=== PATIENT | female | born 1980 | race Caucasian/White ===

== ENCOUNTER 2016-11-01 06:57 | Day surgery (SDC) | payer MEDICAID ==
[~2016-11-01 06:57] MED LIST: Lactated Ringers 1,000 ML IV SCH; Lidocaine 1%/Sod Bicarbonate in NS 8.4% 1 ML Syringe IV PRN; Sodium Chloride 0.9% 10 ML Syringe FLUSH PRN
[2016-11-01] MEDS ORDERED: Bupivacaine 0.5% 30 ML SDV ONE (07:05)
[2016-11-01] MEDS ORDERED: Ketorolac 30 MG/ML SDV ONE (07:26)
[2016-11-01] MEDS ORDERED: ceFAZolin 1 GM Vial ONE (07:26)
[2016-11-01] MEDS ORDERED: Lactated Ringers 1,000 ML ONE (07:26)
[2016-11-01] MEDS ORDERED: HYDROmorphone 1 MG/ML Syringe ONE (07:26)
[2016-11-01] MEDS ORDERED: Dexamethasone 4 MG/ML 5 ML MDV ONE (07:26)
[2016-11-01] MEDS ORDERED: Rocuronium 50 MG/5 ML Vial ONE (07:26)
[2016-11-01] MEDS ORDERED: Ondansetron 4 MG/2 ML SDV ONE (07:26)
[2016-11-01] MEDS ORDERED: Lidocaine 1% 6 ML ONE (07:26)
[2016-11-01] MEDS ORDERED: Propofol 200 MG/20 ML SDV ONE (07:27)
[2016-11-01] MEDS ORDERED: fentaNYL 250 MCG/5 ML SDV ONE (07:27)
[2016-11-01] MEDS ORDERED: Midazolam 1 MG/ML 2 ML SDV ONE (07:27)
[2016-11-01] MEDS ORDERED: Scopolamine 1.5 MG Transdermal Patch TRDERM PRN (07:30)
--- NOTE | 2016-11-01 07:36 | PCM.PREANE ---
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 Respiratory: Reports: no symptoms (smokes cigarettes1/2 pack/day times past 20 years.) Cardiovascular: Reports: dyspnea on exertion, palpitations (with anxiety disorder.) GI: Reports: no symptoms Other: Reports: easy bruising, depression, anxiety - PHYSICAL ASSESSMENT HR: 93 O2 Sat by Pulse Oximetry: 99 RR: 18 BP: 117/84 Temp: 37.1 C Height: 1.57 m Weight: 87.09 kg NPO Status Date: 11/01/16 NPO Status Time: 00:01 ASA Class: 2 Mental Status: alert & oriented x3 Airway Class: Mallampati = 2 Dentition: Reports: dentures (upper and lower) Thyro-Mental Finger Breadths: 3 Mouth Opening Finger Breadths: 3 ROM/Head Extension: full Respiratory Status: lungs clear to auscultation bilaterally Cardiovascular Status: regular rate & rhythm, normal S1, S2, no murmur, blood pressure WNL - LAB Values: Reviewed and noted. - IMAGING/EKG Impressions: EKG: sinus rhythm, right atrial enlargement, poor r wave progression. CXR: negative - ALLERGIES Allergies/Adverse Reactions: Allergies Allergy/AdvReac Type Severity Reaction Status Date / Time No Known Drug Allergies Allergy Unknown unknown Verified 10/31/16 12:24 - ANESTHESIA PLAN Preop Beta Gabby: No Anesthesia Type Planned: general anesthesia - ACKNOWLEDGEMENTS Pt an appropriate candidate for the planned anesthesia: Yes Alternatives and risks of anesthesia discussed w pt/guardian: Yes Pt/Guardian understands and agree with anesthesia plan: Yes PreAnesthesia Questionnaire HEENT History: Reports: Other (see below) Other HEENT History: wears glasses, has dentures Cardiovascular History: Reports: None Respiratory History: Reports: None 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 History: Reports: Endometriosis, Other OB/BYN History: left ovary removed, ovarian cyst, pelvic pain, dysnmenorrhea, chylmdia Musculoskeletal History: Reports: None Neurological History: Reports: Headaches, chronic Psychiatric History: Reports: Anxiety, Bipolar, Depression Endocrine/Metabolic History: Reports: None Hematologic History: Reports: None Immunologic History: Reports: None Oncologic (Cancer) History: Reports: None Dermatologic History: Reports: None - Past Surgical History Head Surgeries/Procedures: Reports: None HEENT Surgical History: Reports: Tonsillectomy Cardiovascular Surgical History: Reports: None GI Surgical History: Reports: Cholecystectomy Female Surgical History: Reports: Hysterectomy, Oophorectomy, Tubal ligation - SUBSTANCE USE Smoking Status *Q: Current Every Day Smoker Tobacco Use Within Last Twelve Months: Cigarettes Second Hand Smoke Exposure: Yes Recreational Drug Use History: No - HOME MEDS Home Medications: Home Meds ClonazePAM [KlonoPIN] 0.5 mg PO TID PRN 01/23/16 [History] QUEtiapine [SEROquel] 25 mg PO QID PRN 01/23/16 [History] Cyclobenzaprine [Flexeril] 10 mg PO TID PRN 10/31/16 [History] Escitalopram [Lexapro] 1 tab PO DAILY 10/31/16 [History] buPROPion HCl [Wellbutrin Xl] 1 tab PO DAILY 10/31/16 [History] - CURRENT (IN HOUSE) MEDS Current Meds: Current Medications Lactated Ringer's (Ringers, Lactated) 1,000 mls @ 125 mls/hr IV ASDIRECTED NICO Stop: 11/01/16 23:00 Lidocaine/Sodium Bicarbonate (Buffered Lidocaine 1% In Ns 8.4%) 0.25 ml IV ONETIME PRN PRN Reason: Prior to IV Start Stop: 11/01/16 18:00 Sodium Chloride (Saline Flush) 10 ml FLUSH ASDIRECTED PRN PRN Reason: Keep Vein Open Stop: 11/01/16 18:00 Discontinued Medications Bupivacaine HCl (Marcaine 0.5%) Confirm Administered Dose 30 ml .ROUTE .STK-MED ONE Stop: 11/01/16 07:06 Cefazolin Sodium (Ancef) Confirm Administered Dose 2 gm .ROUTE .STK-MED ONE Stop: 11/01/16 07:27 Dexamethasone (Dexamethasone) Confirm Administered Dose 20 mg .ROUTE .STK-MED ONE Stop: 11/01/16 07:27 Fentanyl (Sublimaze) Confirm Administered Dose 250 mcg .ROUTE .STK-MED ONE Stop: 11/01/16 07:28 Hydromorphone HCl (Dilaudid) Confirm Administered Dose 1 mg .ROUTE .STK-MED ONE Stop: 11/01/16 07:27 Lidocaine HCl (Xylocaine-Mpf 1%) Confirm Administered Dose 6 mls @ as directed .ROUTE .STK-MED ONE Stop: 11/01/16 07:27 Lactated Ringer's (Ringers, Lactated) Confirm Administered Dose 1,000 mls @ as directed .ROUTE .STK-MED ONE Stop: 11/01/16 07:27 Ketorolac Tromethamine (Toradol) Confirm Administered Dose 30 mg .ROUTE .STK- MED ONE Stop: 11/01/16 07:27 Midazolam HCl (Versed 1 Mg/Ml) Confirm Administered Dose 2 mg .ROUTE .STK-MED ONE Stop: 11/01/16 07:28 Ondansetron HCl (Zofran) Confirm Administered Dose 4 mg .ROUTE .STK-MED ONE Stop: 11/01/16 07:27 Propofol (Diprivan 20 Ml) Confirm Administered Dose 200 mg .ROUTE .STK-MED ONE Stop: 11/01/16 07:28 Rocuronium [place] (Zemuron) Confirm Administered Dose 50 mg .ROUTE .STK-MED ONE Stop: 11/01/16 07:27
[2016-11-01] MEDS ORDERED: Ondansetron 4 MG/2 ML SDV IVPUSH PRN (08:14)
[2016-11-01] MEDS ORDERED: HYDROmorphone 0.5 MG/0.5 ML Syringe IVPUSH PRN (08:14)
[2016-11-01] MEDS ORDERED: fentaNYL 100 MCG/2 ML SDV IVPUSH PRN (08:14)
[2016-11-01] MEDS ORDERED: Albuterol 0.083% 2.5 MG/3 ML Neb Soln NEB PRN (08:14)
[2016-11-01] MEDS ORDERED: Midazolam 1 MG/ML 2 ML SDV IVPUSH PRN (08:14)
[2016-11-01] MEDS ORDERED: diphenhydrAMINE 50 MG/ML SDV ONE (08:20)
[2016-11-01] MEDS ORDERED: Neostigmine Methylsulfate 1 MG/ML 5 ML Syringe ONE (08:50)
--- NOTE | 2016-11-01 09:13 | PCM.POSTAN ---
POST ANESTHESIA ASSESSMENT - MENTAL STATUS Mental Status: alert - VITAL SIGNS Pulse Rate: 86 SaO2: 99 Resp Rate: 17 Blood Pressure: 146/84 Temperature: 36.6 C - RESPIRATORY Respiratory Status: respiratory rate WNL, airway patent, O2 saturation stable, supplemental oxygen - CARDIOVASCULAR CV Status: pulse rate WNL, blood pressure stable - GASTROINTESTINAL GI Status: no symptoms - POST OP HYDRATION Hydration Status: adequate & stable
--- NOTE | 2016-11-01 09:14 | PCM.OPNOTE ---
- General Post-Op/Procedure Note Date of Surgery/Procedure: 11/01/16 Operative Procedure(s): Diagnostic laparoscopy, with lysis of adhesions, and removal of the right ovary Pre Op Diagnosis: Lower quadrant pain, history of endometriosis, pelvic pain Post-Op Diagnosis: Right lower quadrant pain, no endometriosis seen, pelvic pain , adhesions of omentum to vaginal cuff, and pelvic area Anesthesia Technique: General ET tube Primary Surgeon: Delio Lui Anesthesia Provider: Marielos Mc Fluid Replacement, Intraop: 1,500 Output, Urine Amount: 100 EBL in mLs: 5 Drain/Tube Comments:: Non- Complications: None Condition: Good Free Text/Narrative:: Patient was transported to operating room #2, and placed under general anesthesia with endotracheal intubation in the low dorsal lithotomy position. Prepared and draped in sterile fashion. SCDs in place and functioning. Prior surgery. Ancef 2 g given intravenously, prior surgery. Timeout performed. Examination under anesthesia revealed right ovary palpable. No other adnexal masses or pelvic masses palpated. Sponge stick placed in the vagina and removed at the end of the procedure to allow manipulation of the vaginal cuff, if needed. The umbilical area and suprapubic area injected with 2 mL of 0.25% lidocaine 5 mm incision made in the umbilical area 5 mm layer 10 mm incision in the suprapubic area to allow removal of the ovary. The pneumoperitoneum was obtained. Prompt visualization. Pelvic organs was accomplished. There were adhesions of the omentum to the vaginal cuff, and the right ovary was stuck down behind The adhesions. The area of the gallbladder was evaluated, with laparoscope. Menses, gallbladder been removed previously appeared normal.). Appendix was normal retrocecal, and not removed. A third port was placed left quadrant, and utilizing Enseal. The right ovary was grasped, elevated, and cross clamped, Enseal activated, and incised, the right ovary was removed intact. Into the pelvis, posterior cul-de-sac lesions of the omentum were then lysed from the vaginal cuff. Hemostasis was obtained without difficulty and estimated blood loss 5 mL or less . 12 mm port inserted in the suprapubic incision area after moving. The 5 mm port, and extended, an incision in the right ovary removed with the bag being placed under replaced into the Endobag and removed through the incision. Reinspection. The pelvic area showed no bleeding. The 12 mm port 5 mm ports on the left side, and umbilicus removed after reducing the pneumoperitoneum. The anterior fascia was suture-ligated with 0 Vicryl. At the suprapubic area and no bleeding observed through the scope after suturing. Same. The left quadrant 5 mm port removed, and no bleeding seen. Sponge, needle, pack, and splint sharp count correct, x2, and the skin incisions closed with 3-0 Monocryl and Dermabond applied. Sponge stick removed from the vagina as noted above. To remove. Patient transported post anesthesia care unit in satisfactory condition. No blood transfusions I talked with the patient's and all questions answered is voice satisfaction. One set of pictures taken with 6 image image 001, shows liver with previous, cholecystectomy image, 002, shows retrocecal appendix image, 003, shows the right adnexa. After removal, right ovary, which is seen on the left side, the picture to into the cul-de-sac. Images Euler for, shows the pelvic peritoneum image, 005, again, pelvic peritoneum, and no bleeding, and image, 006, shows the left quadrant 5 mm port after removal with no bleeding. Will prescribe Percocet, one or 2 every 6-8 hours, dispense 25, taken as needed , and also prescription for Motrin 600 mg by mouth q. 6 hours as needed for pain , dispensed 50 and Zofran and ODT, 4 mg, dispense 20, use, one every 6 hours, sublingual, if needed. After removal of the scopolamine, with instructions for removal watch hand was removed. Patch placing Kleenex discard, and wash hands twice, do not rubberized, poorly 6 patch, which we removed in 2 days
[2016-11-01 10:13] VITALS: BP 123/73
[2016-11-01] MEDS ORDERED: Acetaminophen/oxyCODONE 325-5 MG Tab PO SCH (10:34)
--- NOTE | 2016-11-01 10:34 | PCM48HPAN ---
Post Anesthesia Note - EVALUATION WITHIN 48HRS OF ANESTHETIC Vital Signs in Normal Range: Yes Patient Participated in Evaluation: Yes Respiratory Function Stable: Yes Airway Patent: Yes Cardiovascular Function Stable: Yes Hydration Status Stable: Yes Pain Control Satisfactory: Yes Nausea and Vomiting Control Satisfactory: Yes Mental Status Recovered: Yes
== END 2016-11-01 11:01 | disposition home or self-care (01) ==
LOC: JD.SDS 06:57
PROVIDERS: ATTEND Obstetrics & Gynecology
DX: N83.01 Follicular cyst of right ovary (principal); F41.9 Anxiety disorder, unspecified; F32.9 Major depressive disorder, single episode, unspecified; Z79.899 Other long term (current) drug therapy
CPT/HCPCS: 58940; 88305; A9270; J0690; J1100; J1170; J1200; J2250; J2405; J2710; J3010; J7050; J7120; 00840; J1885; J2704

== ENCOUNTER 2017-09-04 15:19 | Emergency (ER) | payer MEDICAID ==
[2017-09-04 15:49] VITALS: BP 140/92
--- NOTE | 2017-09-04 16:41 | EDM.PDOC ---
ED HPI GENERAL MEDICAL PROBLEM - General Chief Complaint: General Stated Complaint: TOOK A FALL; NOW HAS PAIN IN HEAD,BACK, AND HIP Time Seen by Provider: 09/04/17 15:47 Source of Information: Reports: Patient History Limitations: Reports: No Limitations - History of Present Illness INITIAL COMMENTS - FREE TEXT/NARRATIVE: The patient slipped getting in her car and landed on her left hip about a week ago. Today she cleaned her floor and slipped and fell and landed on her left side. She did hit her head but she has no LOC. She has no neck pain. She has no numbness or weakness. She has pain to her left proximal and distal humerus. She has pain to her left proximal femur and distal femur. She also has some left lateral chest pain. Onset: Sudden Duration: Minutes: Quality: Reports: Sharp Severity: Moderate Improves with: Reports: Immobilization Worsens with: Reports: Movement Context: Reports: Trauma (fell) Associated Symptoms: Reports: Chest Pain, Headaches. 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, NSAIDS left side of head, shoulder, legs, ankle Pain Score (Numeric/FACES): 7 - Related Data Allergies Allergy/AdvReac Type Severity Reaction Status Date / Time diclofenac Allergy Rash Verified 09/04/17 15:49 Home Meds: Home Meds ClonazePAM [KlonoPIN] 0.5 mg PO TID PRN 01/23/16 [History] QUEtiapine [SEROquel] 100 mg PO BEDTIME 01/23/16 [History] buPROPion HCl [Wellbutrin Xl] 1 tab PO DAILY 10/31/16 [History] Desvenlafaxine [Pristiq] 1 tab PO DAILY 09/04/17 [History] Estradiol [Vivelle-Dot] 1 each TD ASDIRECTED 09/04/17 [History] Hydrocodone/Acetaminophen [Hydrocodon-Acetaminophen 5-325] 1 - 2 each PO Q6HR PRN #20 tablet 09/04/17 [Rx] Zolpidem Tartrate [Ambien] 10 mg PO ASDIRECTED PRN 09/04/17 [History] Past Medical History HEENT History: Reports: Other (See Below) Other HEENT History: wears glasses, has dentures Cardiovascular History: Reports: None Respiratory History: Reports: None Genitourinary History: Reports: Other (See Below) Other Genitourinary History: bladder droop 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: Endometriosis, Other OB/BYN History: left ovary removed, ovarian cyst, pelvic pain, dysnmenorrhea, chylmdia Musculoskeletal History: Reports: None Neurological History: Reports: Headaches, Chronic Psychiatric History: Reports: Anxiety, Bipolar, Depression Endocrine/Metabolic History: Reports: None Hematologic History: Reports: None Immunologic History: Reports: None Oncologic (Cancer) History: Reports: None Dermatologic History: Reports: None - Past Surgical History Head Surgeries/Procedures: Reports: None Cardiovascular Surgical History: Reports: None GI Surgical History: Reports: Cholecystectomy Female Surgical History: Reports: Hysterectomy, Oophorectomy, Tubal Ligation Social & Family History - Family History Family Medical History: Noncontributory - Tobacco Use Smoking Status *Q: Current Every Day Smoker Years of Tobacco use: 20 Packs/Tins Daily: 0.5 Second Hand Smoke Exposure: Yes - Caffeine Use Caffeine Use: Reports: Soda, Tea - Recreational Drug Use Recreational Drug Use: No - Living Situation & Occupation Living situation: Reports: with Significant Other, with Family Occupation: Unemployed ED ROS GENERAL - Review of Systems Review Of Systems: See Below Constitutional: Reports: No Symptoms HEENT: Reports: No Symptoms Respiratory: Reports: No Symptoms Cardiovascular: Reports: No Symptoms Endocrine: Reports: No Symptoms GI/Abdominal: Reports: No Symptoms : Reports: No Symptoms Musculoskeletal: Reports: Other (Left arm and leg pain) Neurological: Reports: Headache ED EXAM, GENERAL - Physical Exam Exam: See Below Exam Limited By: No Limitations General Appearance: Alert, No Apparent Distress Ears: Normal External Exam Nose: Normal Inspection Head: Atraumatic, Normocephalic Neck: Normal Inspection Respiratory/Chest: No Respiratory Distress, Lungs Clear, Normal Breath Sounds, Other (Pain upon palpation to the left lateral rib cage) Cardiovascular: Regular Rate, Rhythm, No Edema, No Murmur GI/Abdominal: Soft, Non-Tender, No Organomegaly, No Mass Back Exam: Normal Inspection Extremities: Other (Pain upon palpation to the left hip and distal femur. Good sensation and pulses distally. Pain upon palpation to the left proximal humerus and distal humerus.) Course - Vital Signs Last Recorded V/S: Last Vital Signs Temp 96.4 F 09/04/17 15:45 Pulse 86 09/04/17 15:45 Resp 18 09/04/17 15:45 BP 140/92 H 09/04/17 15:45 Pulse Ox 99 09/04/17 15:45 - Orders/Labs/Meds Orders: Active Orders 24 hr Category Date Time Status Femur Min 2V Lt [CR] Stat Exams 09/04/17 16:03 Taken Humerus Lt [CR] Stat Exams 09/04/17 16:04 Taken Ribs 2V w Chest Lt [CR] Stat Exams 09/04/17 16:04 Taken - Re-Assessments/Exams Free Text/Narrative Re-Assessment/Exam: 09/04/17 16:53 Her x-rays all look good. I will discharge her home. Departure - Departure Time of Disposition: 16:55 Disposition: Home, Self-Care 01 Condition: Good Clinical Impression: Fall Qualifiers: Encounter type: initial encounter Qualified Code(s): W19.XXXA - Unspecified fall, initial encounter Contusion of left hip Qualifiers: Encounter type: initial encounter Qualified Code(s): S70.02XA - Contusion of left hip, initial encounter Contusion of left upper arm Qualifiers: Encounter type: initial encounter Qualified Code(s): S40.022A - Contusion of left upper arm, initial encounter Chest wall contusion Qualifiers: Encounter type: initial encounter Laterality: left Qualified Code(s): S20.212A - Contusion of left front wall of thorax, initial encounter - Discharge Information Prescriptions: Hydrocodone/Acetaminophen [Hydrocodon-Acetaminophen 5-325] 1 - 2 each PO Q6HR PRN #20 tablet PRN Reason: Pain Referrals: Camila Gutierrez PA-C [Primary Care Provider] - 1 Week Forms: ED Department Discharge Additional Instructions: Ice the areas that hurt. Take motrin or aleve for pain. You may also use some hydrocodone for pain. Please return if you are worse. - My Orders Last 24 Hours: My Active Orders 09/04/17 16:03 Femur Min 2V Lt [CR] Stat 09/04/17 16:04 Humerus Lt [CR] Stat Ribs 2V w Chest Lt [CR] Stat - Assessment/Plan Last 24 Hours: My Active Orders 09/04/17 16:03 Femur Min 2V Lt [CR] Stat 09/04/17 16:04 Humerus Lt [CR] Stat Ribs 2V w Chest Lt [CR] Stat
--- NOTE | 2017-09-05 06:54 | CR ---
Left humerus: Two views of the left humerus were obtained. Comparison: No previous study. No fracture or other abnormality is identified. Impression: 1. No abnormality is identified on two-view left humerus study. Diagnostic code #1
--- NOTE | 2017-09-05 06:54 | CR ---
Left femur: AP and lateral views of the left femur were obtained. Comparison: No prior femur or hip study is available. Several sclerotic areas are noted within the intertrochanteric region of the left hip which are felt to be benign. Joint space within the left hip appears preserved. No acute fracture or other bony abnormality is seen. Impression: 1. Several sclerotic areas within the proximal femur felt to be benign. 2. Two-view left femur study is otherwise unremarkable. Diagnostic code #2
--- NOTE | 2017-09-05 07:06 | CR ---
Chest and left ribs: Frontal view of the chest was obtained as well as three views of the left ribs. Comparison: Prior chest x-ray from 07/12/16. Heart size and mediastinum are normal. Lungs are clear. No acute fracture or other left-sided rib abnormality is appreciated. Impression: 1. No discrete left-sided rib abnormality is appreciated. Nothing acute is seen on accompanying chest x-ray. Diagnostic code #1
== END 2017-09-04 17:08 | disposition home or self-care (01) ==
LOC: JD.ED 15:19
DX: S70.02XA Contusion of left hip, initial encounter (principal); S40.022A Contusion of left upper arm, initial encounter; F31.9 Bipolar disorder, unspecified; F17.210 Nicotine dependence, cigarettes, uncomplicated; Z79.899 Other long term (current) drug therapy; Z88.8 Allergy status to other drugs, medicaments and biological substances; W01.0XXA Fall on same level from slipping, tripping and stumbling without subsequent striking against object, initial encounter
CPT/HCPCS: 71101-26-LT; 71101-LT; 73060-26-LT; 73060-LT; 73552-26-LT; 73552-LT; 99284

== ENCOUNTER 2017-12-08 16:40 | Emergency (ER) | payer MEDICAID ==
[2017-12-08 16:47] VITALS: BP 167/111
[2017-12-08] MEDS ORDERED: LORazepam 2 MG/ML SDV IM ONE (17:13)
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
== END 2017-12-08 17:58 | disposition home or self-care (01) ==
LOC: JD.ED 16:40 → SUPCPDRO 16:40 → JD.ED 17:58
DX: F41.0 Panic disorder [episodic paroxysmal anxiety] (principal); F31.9 Bipolar disorder, unspecified; F17.210 Nicotine dependence, cigarettes, uncomplicated; Z90.49 Acquired absence of other specified parts of digestive tract; Z88.8 Allergy status to other drugs, medicaments and biological substances; Z79.899 Other long term (current) drug therapy
CPT/HCPCS: 96372; 99283; J2060